=== PATIENT | female | born 1980 | race Caucasian/White ===

== ENCOUNTER 2017-02-06 13:20 | Emergency (ER) | payer OTHER ==
[2017-02-06 13:27] VITALS: BP 127/73; PULSE 95; BMI 38.4
[2017-02-06 13:28] VITALS: TEMP 98.3
[2017-02-06] MEDS ORDERED: KETOROLAC TROMETHAMINE 30 MG/1 ML VIAL IVPUSH ONE (14:21)
--- NOTE | 2017-02-06 14:21 | PDOC ---
History of Present Illness - General History Source: Patient, Old Records Exam Limitations: No Limitations <KarishmaAnitha - Last Filed: 02/06/17 14:18> - General History Source: Patient Exam Limitations: No Limitations - History of Present Illness Initial Comments: 02/06/17 14:21 The patient is a 36-year-old woman with a past medical history of migraine headaches and back pain who presents to the emergency department for further evaluation of chest pain. No fall, trauma, strenuous activity. She states that she has been experiencing intermittent left sided/breast pain that radiates down her left arm that has now worsen, as it is presently constant. Her pain also radiates down to her right lower back. She is unable to describe the nature of the pain, but states that it is states that her pain is exacerbated when taking deep breathes and with movements, as she is unable to brush her hair. She states that she is has never experience this pain before. She took her prescribed muscle relaxers for her chronic back pain and reports that it did not help her symptoms. She denies fever, chills, cough, hemoptysis, diaphoresis, shortness of breath, headache, palpitations, loss of consciousness. She denies jaw pain, neck pain, lower extremity pain/swelling, calf tenderness/ pain She denies abdominal pain, nausea, vomiting, diarrhea She denies recent travel, recent surgery, recent immobilization. Allergies: No Known Drug Allergies Past Surgical History: None reported. Social History: No tobacco, ETOH and recreational drug use. <Harriet Marinelli - Last Filed: 02/06/17 16:45> <Lee Ann Galindo - Last Filed: 02/06/17 19:05> - General Chief Complaint: Chest Pain Stated Complaint: SOB, ABD PAIN Time Seen by Provider: 02/06/17 13:48 Past History - Past Medical History Other medical history: migraine headache - Psycho/Social/Smoking Cessation Hx Suicidal Ideation: No Smoking History: Never smoked Have you smoked in the past 12 months: No Drug/Substance Use Hx: No <Anitha Schwarz - Last Filed: 02/06/17 14:18> <Harriet Marinelli - Last Filed: 02/06/17 16:45> <Lee Ann Galindo - Last Filed: 02/06/17 19:05> - Past Medical History Allergies/Adverse Reactions: Allergies Allergy/AdvReac Type Severity Reaction Status Date / Time No Known Allergies Allergy Verified 02/06/17 13:25 Home Medications: Ambulatory Orders Nitrofurantoin Monohyd/M-Cryst [Macrobid -] 100 mg PO BID #14 capsule 02/06/17 Review of Systems - Review of Systems Able to Perform ROS?: Yes Comments:: 02/06/17 14:21 GENERAL/CONSTITUTIONAL: No fever or chills. No weakness. HEAD, EYES, EARS, NOSE AND THROAT: No change in vision. No ear pain or discharge. No sore throat. CARDIOVASCULAR: Yes: Chest Pain radiating to her left arm and right lower back. No shortness of breath. RESPIRATORY: No cough, wheezing, or hemoptysis. GASTROINTESTINAL: No nausea, vomiting, diarrhea or constipation. GENITOURINARY: No dysuria, frequency, or change in urination. MUSCULOSKELETAL: Yes: Left sided arm pain. Right sided lower back pain. No joint swelling or pain. No neck or back pain. SKIN: No rash NEUROLOGIC: No headache, vertigo, loss of consciousness, or change in strength/ sensation. ENDOCRINE: No increased thirst. No abnormal weight change. HEMATOLOGIC/LYMPHATIC: No anemia, easy bleeding, or history of blood clots. ALLERGIC/IMMUNOLOGIC: No hives or skin allergy. <Harriet Marinelli - Last Filed: 02/06/17 16:45> *Physical Exam - Vital Signs Last Vital Signs Temp Pulse Resp BP Pulse Ox 98.3 F 95 H 18 127/73 100 02/06/17 13:25 02/06/17 13:25 02/06/17 13:25 02/06/17 13:25 02/06/17 13:25 <Anitha Schwarz - Last Filed: 02/06/17 14:18> - Vital Signs Last Vital Signs Temp Pulse Resp BP Pulse Ox 98.3 F 95 H 18 127/73 100 02/06/17 13:25 02/06/17 13:25 02/06/17 13:25 02/06/17 13:25 02/06/17 13:25 - Physical Exam Comments: 02/06/17 14:21 GENERAL: Awake, alert, and fully oriented, in no acute distress HEAD: No signs of trauma EYES: PERRLA, EOMI, sclera anicteric, conjunctiva clear ENT: Auricles normal inspection, hearing grossly normal, nares patent, oropharynx clear without exudates. Moist mucosa NECK: Normal ROM, supple, no lymphadenopathy, JVD, or masses CHECK: There is some tenderness to palpation of the anterior chest wall. LUNGS: Breath sounds equal, clear to auscultation bilaterally. No wheezes, and no crackles HEART: Regular rate and rhythm, normal S1 and S2, no murmurs, rubs or gallops ABDOMEN: Soft, nontender, normoactive bowel sounds. No guarding, no rebound. No masses EXTREMITIES: Normal range of motion, no edema. No clubbing or cyanosis. No cords, erythema, or tenderness NEUROLOGICAL: Cranial nerves II through XII grossly intact. Normal speech, normal gait <Harriet Marinelli - Last Filed: 02/06/17 16:45> - Vital Signs Last Vital Signs Temp Pulse Resp BP Pulse Ox 98.3 F 95 H 18 127/73 100 02/06/17 13:25 02/06/17 13:25 02/06/17 13:25 02/06/17 13:25 02/06/17 13:25 <Lee Ann Galindo - Last Filed: 02/06/17 19:05> ED Treatment Course - LABORATORY CBC & Chemistry Diagram: 02/06/17 15:00 02/06/17 14:56 <Harriet Marinelli - Last Filed: 02/06/17 16:45> - LABORATORY CBC & Chemistry Diagram: 02/06/17 15:00 02/06/17 17:50 - ADDITIONAL ORDERS Additional order review: Laboratory Results 02/06/17 02/06/17 02/06/17 17:50 17:05 15:00 Sodium 138 Cancelled Potassium 4.3 Cancelled Chloride 108 H Cancelled Carbon Dioxide 21 Cancelled Anion Gap 9 Cancelled BUN 12 Cancelled Creatinine 0.6 Cancelled Creat Clearance w eGFR > 60 Cancelled Random Glucose 83 Cancelled Calcium 8.3 L Cancelled Total Bilirubin 0.5 Cancelled AST 14 L Cancelled ALT 15 Cancelled Alkaline Phosphatase 90 Cancelled Creatine Kinase 167 Cancelled CK-MB (CK-2) 1.303 Troponin I < 0.02 Cancelled Total Protein 7.1 Cancelled Albumin 3.4 Cancelled Urine Color Yellow Urine Appearance Clear Urine pH 7.0 Ur Specific Phillips 1.013 Urine Protein Negative Urine Glucose (UA) Negative Urine Ketones Negative Urine Blood 1+ H Urine Nitrite Positive Urine Bilirubin Negative Urine Urobilinogen Negative Ur Leukocyte Esterase Trace H Urine RBC 3 Urine WBC 12 Ur Epithelial Cells Rare Urine Bacteria Moderate Urine Mucus Rare Urine HCG, Qual Negative 02/06/17 14:56 Sodium Cancelled Potassium Cancelled Chloride Cancelled Carbon Dioxide Cancelled Anion Gap Cancelled BUN Cancelled Creatinine Cancelled Creat Clearance w eGFR Cancelled Random Glucose Cancelled Calcium Cancelled Total Bilirubin Cancelled AST Cancelled ALT Cancelled Alkaline Phosphatase Cancelled Creatine Kinase Cancelled CK-MB (CK-2) Troponin I Cancelled Total Protein Cancelled Albumin Cancelled Urine Color Urine Appearance Urine pH Ur Specific Phillips Urine Protein Urine Glucose (UA) Urine Ketones Urine Blood Urine Nitrite Urine Bilirubin Urine Urobilinogen Ur Leukocyte Esterase Urine RBC Urine WBC Ur Epithelial Cells Urine Bacteria Urine Mucus Urine HCG, Qual 02/06/17 15:00 RBC 4.15 MCV 87.4 MCHC 33.6 RDW 13.2 MPV 7.8 Neutrophils % 44.6 Lymphocytes % 43.4 H Monocytes % 7.5 Eosinophils % 3.1 Basophils % 1.4 - Medications Given in the ED: ED Medications Discontinued Medications Generic Name Dose Route Start Last Admin Trade Name Freq PRN Reason Stop Dose Admin Ketorolac Tromethamine 30 mg 02/06/17 14:21 02/06/17 15:19 Toradol Injection - IVPUSH 02/06/17 14:22 30 mg ONCE ONE Administration <Lee Ann Galindo - Last Filed: 02/06/17 19:05> Medical Decision Making - Medical Decision Making 02/06/17 14:19 36-year-old female with history of migraine headaches and chronic lower back pain presents the emergency department with three-day history of constant left- sided chest pain and left upper extremity pain unrelieved with her muscle relaxer at home. Differential diagnosis includes but is not limited to: ACS, muscular strain, muscle spasm, pneumonia, pneumothorax, electrolyte abnormality , toxic/metabolic derangement. Plan: 1. EKG 2. Labs 3. Chest x-ray 4. Pain management 5. Observe and reevaluate <Anitha Schwarz - Last Filed: 02/06/17 14:18> *DC/Admit/Observation/Transfer - Attestations Physician Attestion: 02/06/17 14:20 I, Dr. Anitha Schwarz, attest that the scribes documentation that appears above has been prepared under my direction and personally reviewed by me in its entirety. I confirmed that the note above accurately reflects all work, treatment, procedures, and medical decision-making performed by me. <Anitha Schwarz - Last Filed: 02/06/17 14:18> - Attestations Scribe Attestion: 02/06/17 14:21 Documentation prepared by Harriet Marinelli, acting as medical dermatologist for Anitha Schwarz MD. <Harriet Marinelli - Last Filed: 02/06/17 16:45> <Lee Ann Galindo - Last Filed: 02/06/17 19:05> Diagnosis at time of Disposition: Chest pain Qualifiers: Chest pain type: unspecified Qualified Code(s): R07.9 - Chest pain, unspecified - Discharge Dispostion Disposition: HOME Condition at time of disposition: Stable - Prescriptions Prescriptions: Nitrofurantoin Monohyd/M-Cryst [Macrobid -] 100 mg PO BID #14 capsule - Referrals Referrals: Karla Escobar MD [Primary Care Provider] - - Patient Instructions Printed Discharge Instructions: DI for Atypical Chest Pain Additional Instructions: please follow up with your regular physician
[2017-02-06] MEDS ORDERED: KETOROLAC TROMETHAMINE 30 MG/1 ML VIAL ONE (15:07)
[2017-02-06 15:08] LABS: URINE APPEARANCE CLEAR; URINE BILIRUBIN NEGATIVE (NEGATIVE); URINE COLOR YELLOW; URINE GLUCOSE (UA) NEGATIVE (NEGATIVE); URINE KETONE NEGATIVE (NEGATIVE); URINE NITRITE POSITIVE (NEGATIVE); URINE PROTEIN NEGATIVE (NEGATIVE); URINE UROBILINOGEN NEGATIVE E.U./dl (0.2-1.0)
[2017-02-06 15:11] LABS: URINE BLOOD 1+ (NEGATIVE); URINE LEUK ESTERASE TRACE (NEGATIVE)
[2017-02-06 15:13] LABS: BASOPHIL 1.4 % (0-2.0); EOSINOPHIL 3.1 % (0-4.5); MCH 29.4 pg (25.7-33.7); MCHC 33.6 g/dl (32.0-36.0); MEAN CELL VOLUME 87.4 fl (80-96); MEAN PLT VOLUME 7.8 fl (7.5-11.1); NEUTROPHILS 44.6 % (42.8-82.8); PLATELET COUNT 281 K/MM3 (134-434); RDW 13.2 % (11.6-15.6); WHITE BLOOD COUNT 6.3 K/mm3 (4.0-10.0)
[2017-02-06 15:14] LABS: URINE BACTERIA MODERATE /hpf (NONE SEEN); URINE MUCUS RARE; URINE RBC 3 /hpf (0-3); URINE WBC 12 /hpf (3-5)
[2017-02-06] MEDS ORDERED: NITROFURANTOIN MACROCRYSTAL 50 MG CAPSULE (FP) PO SCH (15:45)
[2017-02-06] MEDS ORDERED: NITROFURANTOIN MACROCRYSTAL 50 MG CAPSULE (FP) ONE (18:13)
[2017-02-06 18:22] LABS: ALBUMIN 3.4 g/dl (3.4-5.0); ANION GAP 9 (8-16); CALCIUM 8.3 mg/dL (8.5-10.1); CO2 21 mmol/L (21-32); CREATININE 0.6 mg/dL (0.55-1.02); GLUCOSE,RANDOM 83 mg/dL (74-106); SGPT/ALT 15 U/L (12-78)
[2017-02-06 18:26] LABS: ALK PHOS 90 U/L (45-117); BILIRUBIN,TOTAL 0.5 mg/dL (0.2-1.0); SGOT/AST 14 U/L (15-37); TOT PROT 7.1 g/dl (6.4-8.2); TROPONIN I < 0.02 ng/ml (0.00-0.05)
--- NOTE | 2017-02-12 22:38 | EKG ---
Test Reason : Blood Pressure : / mmHG Vent. Rate : 093 BPM Atrial Rate : 093 BPM P-R Int : 150 ms QRS Dur : 080 ms QT Int : 334 ms P-R-T Axes : 062 026 054 degrees QTc Int : 415 ms NORMAL SINUS RHYTHM LOW VOLTAGE QRS BORDERLINE ECG NO PREVIOUS ECGS AVAILABLE Confirmed by BRENTON LYNNE, PRICILA ([id number]) on 02/12/2017 10:37:40 PM Referred By: Confirmed By:PRICILA FARRIS MD
== END 2017-02-06 20:15 | disposition home or self-care (01) ==
LOC: JER 13:20
PROC: 3E0333Z Introduction of Anti-inflammatory into Peripheral Vein, Percutaneous Approach (ICD-10-PCS; principal; 2017-02-06)
DX: R07.9 Chest pain, unspecified (principal)
CPT/HCPCS: 36415; 71020-TC; 80053; 81003; 81015; 82550; 82553; 84484; 84703; 85025; 93005; 93010; 96374; 99282-25

== ENCOUNTER 2020-01-24 16:41 | Emergency (ER) | payer SELFPAY ==
[2020-01-24 17:11] VITALS: BMI 43.9
--- NOTE | 2020-01-24 17:12 | PDOC ---
Rapid Medical Evaluation Chief Complaint: Back Pain Time Seen by Provider: 01/24/20 17:05 Medical Evaluation: Allergies Allergy/AdvReac Type Severity Reaction Status Date / Time No Known Allergies Allergy Verified 02/06/17 13:25 01/24/20 17:07 Pt c/o: left flank pain, took tylenol last night , subjective fever Pt on brief exam: vss, left cva tenderness, no abd tenderness Pt ordered for: labs and urine Pt to proceed to the ED Discharge Disposition - Diagnosis Flank pain - Referrals - Patient Instructions - Post Discharge Activity
[2020-01-24 17:49] LABS: BASO % 0.4 % (0-2.0); EOS % 3.2 % (0-4.5); HEMATOCRIT 36.7 % (32.4-45.2); HEMOGLOBIN 12.4 GM/dL (10.7-15.3); LYMPH % 46.5 % (8-40); MCH 29.3 pg (25.7-33.7); MCHC 33.9 g/dl (32.0-36.0); MEAN CELL VOLUME 86.5 fl (80-96); MEAN PLT VOLUME 8.3 fl (7.5-11.1); MONO % 6.6 % (3.8-10.2); NEUT % 43.3 % (42.8-82.8); PLATELET COUNT 351 K/MM3 (134-434); RBC 4.24 M/mm3 (3.60-5.2); WHITE BLOOD COUNT 6.4 K/mm3 (4.0-10.0)
[2020-01-24] MEDS ORDERED: SODIUM CHLORIDE 0.9% 500 ML INFUS.BAG IV ONE (18:07)
[2020-01-24] MEDS ORDERED: ACETAMINOPHEN 325 MG TABLET (FP) PO ONE (18:07)
[2020-01-24] MEDS ORDERED: METOCLOPRAMIDE HCL INJECTION 10 MG/2 ML VIAL IVPUSH ONE (18:07)
[2020-01-24] MEDS ORDERED: ACETAMINOPHEN 325 MG TABLET (FP) ONE (18:11)
[2020-01-24] MEDS ORDERED: METOCLOPRAMIDE HCL INJECTION 10 MG/2 ML VIAL ONE (18:11)
[2020-01-24 18:15] LABS: ALBUMIN 3.6 g/dl (3.4-5.0); BILIRUBIN,TOTAL 0.4 mg/dL (0.2-1); BLOOD UREA NITROGEN 11.7 mg/dL (7-18); CALCIUM 8.6 mg/dL (8.5-10.1); CREATININE 0.7 mg/dL (0.55-1.3); POTASSIUM 4.4 mmol/L (3.5-5.1); TOT PROT 7.6 g/dl (6.4-8.2)
[2020-01-24 18:57] LABS: HCG,QUALITATIVE URINE Negative
[2020-01-24 19:32] LABS: EPI CELLS 2.3 /HPF (0-5/HPF); HYALINE CASTS 0 /lpf (0-8); URINE APPEARANCE CLEAR; URINE BACTERIA 7742.5 /hpf (NEGATIVE); URINE BILIRUBIN NEGATIVE (NEGATIVE); URINE COLOR YELLOW; URINE GLUCOSE (UA) NEGATIVE (NEGATIVE); URINE KETONE NEGATIVE (NEGATIVE); URINE LEUK ESTERASE TRACE (NEGATIVE); URINE NITRITE NEGATIVE (NEGATIVE); URINE PROTEIN NEGATIVE (NEGATIVE); URINE RBC 2 /hpf (0-4); URINE UROBILINOGEN 0.2 mg/dL (0.2-1.0); URINE WBC 4 /hpf (0-5)
--- NOTE | 2020-01-24 20:14 | PDOC ---
Documentation entered by Nancy Knapp SCRIBE, acting as scribe for Yolanda Rosa MD. Yolanda Rosa MD: This documentation has been prepared by the Aria rahman Xhesika, SCRIBE, under my direction and personally reviewed by me in its entirety. I confirm that the documentation accurately reflects all work, treatment, procedures, and medical decision making performed by me. History of Present Illness - General Chief Complaint: Back Pain Stated Complaint: BACK PAIN/ FEVER Time Seen by Provider: 01/24/20 17:05 History Source: Patient Exam Limitations: No Limitations - History of Present Illness Initial Comments: 01/24/20 18:15 HPI The patient is a 39 y/o female with a PMH of migraines and chronic back pain pr esenting to the ED with left flank pain and lower back pain. Pt describes her pain as 12/10 in severity, sharp, crampy in nature, associated with a fever 101 last night, chills. Pt reports 5 days of headache. Pt denies any history of kidney stones. Denies any heavy lifting, trauma or falls. no meds taken. Denies chest pain, SOB, palpitation, dizziness, weakness, N, V, D, abdominal pain, focal weakness/paresthesias, leg swelling/pain, rash. No sick contacts or travel. No new changes in medications. No suspicious food intake Allergies: None Past Medical History/PSH: migraines and chronic back pain Social history: Lives with family. No tobacco, ETOH or drug use. Meds: as documented in EMR Family history: noncontributory ROS GENERAL/CONSTITUTIONAL: + fever or chills. No weakness. no sweats. HEAD, EYES, EARS, NOSE AND THROAT: No change in vision or hearing. No ear pain or discharge. No sore throat or mouth pain. No difficulty swallowing. No congestion. CARDIOVASCULAR: No chest pain or palpitations, syncope or edema. RESPIRATORY: No SOB, cough, wheezing, or hemoptysis. GASTROINTESTINAL No nausea/vomiting. No diarrhea or constipation. GENITOURINARY: +frequency. No hematuria, dysuria, urgency or other changes. MUSCULOSKELETAL: +left flank pain. +lower back pain.No joint or muscle swelling or pain. No decreased range of motion. No neck pain. SKIN: No rash or changes in skin color or lesions. No wounds. NEUROLOGIC: +headache. alert and oriented appropriately, No dizziness, loss of consciousness, or change in strength/sensation. No gait instability. HEMATOLOGIC/LYMPHATIC: No anemia, easy bruising/bleeding, or history of blood clots. No swollen lymph nodes ALLERGIC/IMMUNOLOGIC: No allergies PSYCH: no anxiety/depression All other systems reviewed and negative, or as documented in HPI. Physical exam General: Well appearing, awake and alert, NAD. HEENT: NCAT, PERRL, EOMI, clear conjunctiva, anicteric, moist mucous membranes, clear oropharynx, no oral lesions.. Neck: neck supple, FROM Resp: CTAB, normal and even respirations, no respiratory distress CVS: RRR, no murmurs, 2+ peripheral pulses throughout, no peripheral edema Abdomen: soft, NTND, no rebound or guarding. Back: +mild L sided CVA /paravertebral lumbar tenderness. normal inspection and ROM MSK: no edema, GUZMAN x4, ROM intact. No clubbing or cyanosis. normal bulk and tone. Extremities: no calf tenderness Neuro: alert, oriented appropriately; no focal neurologic deficits Skin: warm and well perfused, cap refill <2 sec, normal color 01/24/20 20:12 01/24/20 21:07 Past History - Past Medical History Allergies/Adverse Reactions: Allergies Allergy/AdvReac Type Severity Reaction Status Date / Time No Known Allergies Allergy Verified 02/06/17 13:25 Home Medications: Ambulatory Orders NK [No Known Home Medication] 01/24/20 - Psycho Social/Smoking Cessation Hx Smoking History: Never smoked Have you smoked in the past 12 months: No Information on smoking cessation initiated: No Hx Alcohol Use: No Drug/Substance Use Hx: No *Physical Exam - Vital Signs Last Vital Signs Temp Pulse Resp BP Pulse Ox 98.0 F 80 17 99/67 98 01/24/20 17:07 01/24/20 17:07 01/24/20 17:07 01/24/20 17:07 01/24/20 17:07 ED Treatment Course - LABORATORY CBC & Chemistry Diagram: 01/24/20 17:22 01/24/20 17:22 - ADDITIONAL ORDERS Additional order review: 01/24/20 17:22 RBC 4.24 MCV 86.5 MCHC 33.9 RDW 15.0 D MPV 8.3 Neutrophils % 43.3 Lymphocytes % 46.5 H Monocytes % 6.6 Eosinophils % 3.2 Basophils % 0.4 Medical Decision Making - Medical Decision Making 01/24/20 20:13 Vital Signs Temp Pulse Resp BP Pulse Ox 98.0 F 80 17 99/67 98 01/24/20 17:07 01/24/20 17:07 01/24/20 17:07 01/24/20 17:07 01/24/20 17:07 DDx abdominal pain: Renal colic, biliary colic, metabolic/electrolyte derangements. GERD, PUD, esophageal spasm, pancreatitis, hepatitis, constipation, colitis, gastroenteritis, cholecystitis, UTI, pyelonephritis, ileus, SBO, medication side effect, hernia, appendicitis, diverticulitis, mesenteric ischemia. msk strain, mesenteric adenitis, psoas abscess. No evidence of pancreatitis, AAA, cholecystitis, choledocholithiasis, cholangitis, mesenteric ischemia, small bowel obstruction, diverticulitis, colitis, appendicitis, or pelvic etiolology, rosanne zuleta tear, burr machine operator issues such as ovarian torsion, TOA, or ectopic . labs and lytes wnl, UA neg for infection, reassuring CT spiral, given right flank pain, eval for stone/hydro, given limitations with body habitus and clinical history/exam CT spiral neg for acute pathology, no stone or hydro. diverticulosis and fatty liver, otherwise unremarkable study. The patient appears comfortable and states that pain is improved. Given medications tylenol/reglan, IVF with clinical improvement. Tolerating oral intake. Vital signs reviewed and are normal. On repeat physical exam, the abdomen is soft and nontender, no suggestive findings for acute abdominal process at this time. All diagnostics tests reviewed and discussed with the patient. 01/24/20 20:58 01/24/20 21:09 Discharge - Discharge Information Problems reviewed: Yes Clinical Impression/Diagnosis: Flank pain Condition: Improved Disposition: HOME - Admission No - Follow up/Referral Referrals: Effie Alanis MD [Primary Care Provider] - - Patient Discharge Instructions Patient Printed Discharge Instructions: DI for Flank Pain Additional Instructions: On repeat examination prior to discharge, the patient has a soft abdomen with no peritoneal findings. The patient was able to tolerate oral intake. The patient was advised that even though there is no evidence of a surgical emergency at this time, sometimes this is not visible on CT imaging or in the labs early in a disease course and that if there is additional pain they are to return for rep eat evaluation. The patient stated understanding of this, has decision making capacity and is discharged in stable condition. The patient was instructed to return to the emergency department for re-evaluation in 8-12 hours and sooner if they feel worse in any way. Please return to the emergency department immediately should you feel worse in any way or have any of the following symptoms: increasing or different abdominal pain, persistent vomiting, fevers or shaking chills. Please return to the e mergency department for a recheck in 8-12 hours if the pain is persistent or worse so we can re-evaluate you and ensure that you are not developing a problem that would require surgery or hospitalization. - Post Discharge Activity Work/Back to School Note: Back to Work
[2020-01-24 20:35] VITALS: BP 131/79; PULSE 68; TEMP 98.5
== END 2020-01-24 21:13 | disposition home or self-care (01) ==
LOC: JER 16:41
PROC: 3E033GC Introduction of Other Therapeutic Substance into Peripheral Vein, Percutaneous Approach (ICD-10-PCS; principal; 2020-01-24)
DX: R10.32 Left lower quadrant pain (principal); G89.29 Other chronic pain
CPT/HCPCS: 36415; 74176-TC; 80053; 81003; 83605; 84703; 85025; 87086; 87186; 99285-25